=== PATIENT | female | born 1960 | race African-American/Black ===

== ENCOUNTER → 2017-03-02 | Outpatient (CLI) | payer MEDICARE ==
[~2017-03-02] MED LIST: ACETAMINOPHEN PO; ADVAIR; ADVAIR 2501 DISK W/D; ADVAIR 5001 DISK W/D PO; ALBUTEROL17 GM NEB; ASPIRINEC PO; CALCIUM 600 +1 EA10 PO; CERTAGEN PO; CIPRO PO; CLARITIN10 MG; COLACE PO; COMBIVENT INH14.7 GM; COMBIVENT INH14.7 GM INH; CORRECTOL5 MG PO; DULERA 100 MCG/13 GM INH; FLOVENT DISKU100 MCG INH; HARVONI PO; HUMIBID L.1 TAB.SR .; HUMIBID L.1 TAB.SR . PO; LASIX; LEVAQUIN PO; LISINOPRIL; LISINOPRIL20 MG PO; LODINE PO; MEDROL; MEDROL PO; MUCINEX DM1 TAB.SR . PO; MULTIVITAMIN1 UDCAP PO; NEXIUM; NEXIUM PO; PHENERGAN W/CO120 ML PO; PREDNISONE; PREDNISONE PO; PRILOSEC; PRILOSEC2.5 MG; PRILOSEC20 MG PO; PROAIR HFA8.5 GM INH; RANITIDINE HCL150 M1 PO; REQUIP1 MG PO; RHINOCORT AQUA8.6 GM; ROBITUSSIN ALL118 ML; ROBITUSSIN ALL118 ML PO; ROBITUSSIN-DM120 ML PO; SINGULAIR; SINGULAIR PO; SPIRIVA18 MCG; SPIRIVA18 MCG INH; STEROID; SUDAFED PO; VERAMYST10 GM; XOPENEX1.25 MG/0.; ZESTORETIC 20/11 TAB PO; ZITHROMAX; ZITHROMAX PO; ZYRTEC PO; [UNRECOGNIZED DRUG - OTHER]
--- NOTE | ~2017-03-02 | MY11 ---
[facility] A Service of [facility] & [facility] RADIOLOGY TEXT RESULTS PATIENT: MARY JANE PAIRSH LOCATION: [facility] : 64 UNIT #: [id number] AGE: [address]: Desmond Michel MD SEX: F ORDER DR: [id number] [facility] [address] [place], [place] [address] [id number] O MR#: [id number] Acc #: [id number] NAME: MARY JANE PARISH : 1960 SEX: F STUDY DATE/TIME: 03/02/2017 10:13 UNIT: [facility] ROOM: STUDY DESCRIPTION: MY Mammogram Screening Dig Daniel Attending Physician: Desmond Michel M.D. Referring Physician: Desmond Michel M.D. Ordering Physician: Desmond Michel M.D. Primary Care Physician: Desmond Micehl M.D. MEDICAL IMAGING REPORT This report is preliminary unless electronic signature is present EXAM Screening mammogram, 03/02 INDICATION 56-year-old with no personal or family history of breast cancer. No current complaints. FINDINGS Routine digital screening views of both breasts were obtained. Study is reviewed with an FDA-approved CAD device. Comparison is made with 02/25/2016, 02/19/2015, 02/16/2014. Breast parenchyma shows scattered fibroglandular densities. No new masses or suspicious microcalcifications are seen. Partially obscured benign nodules in both breasts are stable. IMPRESSION Benign mammogram. Routine screen in one year is recommended. Patients over the age of 40 are entered into a reminder system with target due date for the next mammogram. A result letter will also be sent to the patient. BIRADS: 2 Benign Finding Dictated by... Clemente Melara Jr., M.D. THIS IS AN ELECTRONICALLY VERIFIED REPORT Clemente Melara Jr., M.D. at 03/02/2017 5:05 PM NARESH/suman TD: 03/02/2017 11:50 [facility] A Service of [facility] & [facility] RADIOLOGY TEXT RESULTS PATIENT: MARY JANE PARISH LOCATION: [facility] #: [id number] : 64 UNIT #: [id number] AGE: [address]: Desmond Michel MD SEX: F ORDER DR: JOB #: [id number] MEDICAL IMAGING REPORT Page 1 of 1 COPY
== END | disposition home or self-care (01) ==
LOC: CWCC 09:52
DX: Z12.31 Encounter for screening mammogram for malignant neoplasm of breast (principal)
CPT/HCPCS: G0202

== ENCOUNTER → 2017-04-15 | Outpatient (CLI) | payer MEDICARE ==
--- NOTE | ~2017-04-15 | BD1 ---
[facility] A Service of [facility] & [facility] RADIOLOGY TEXT RESULTS PATIENT: MARY JANE PARISH LOCATION: [facility] : 64 UNIT #: [id number] AGE: [address]: Desmond Michel MD SEX: F ORDER DR: [id number] [facility] [address] [place], [place] [address] [id number] O MR#: [id number] Acc #: [id number] NAME: MARY JANE PARISH : 1960 SEX: F STUDY DATE/TIME: 04/15/2017 9:36 UNIT: [facility] ROOM: STUDY DESCRIPTION: BD Dexa Bone Dens 1+ Site Attending Physician: Desmond Michel M.D. Ordering Physician: Desmond Michel M.D. Primary Care Physician: Desmond Michel M.D. MEDICAL IMAGING REPORT This report is preliminary unless electronic signature is present EXAM DEXA scan 04/15/2017 HISTORY Status post menopause with no hormone replacement therapy. Osteopenia. Hypertension with blood pressure medication. Smoking history for 25 years. FINDINGS Bone mineral density in the lumbar spine from L1-L4 is 1.062 g/cm2 which is 0.1 standard deviations above the mean when compared to the young adult reference population which is within the range of normal. This is 0.4 standard deviations above the mean when compared to the age-matched population. Bone mineral density in the left femoral neck was 1.096 g/cm2 which is 2.2 standard deviations above the mean when compared to the young adult reference population which is within the range of normal. This is 1.8 standard deviations above the mean when compared to the age-matched population. IMPRESSION Bone mineral density in the lumbar spine and left hip within the range of normal. Dictated by... Feliciano Beltran M.D. THIS IS AN ELECTRONICALLY VERIFIED REPORT Feliciano Beltran M.D. at 04/17/2017 8:27 AM KRT/to TD: 04/15/2017 12:48 JOB #: [id number] MEDICAL IMAGING REPORT [facility] A Service of [facility] & [facility] RADIOLOGY TEXT RESULTS PATIENT: MARY JANE PARISH LOCATION: [facility] #: [id number] : 64 UNIT #: [id number] AGE: [address]: Desmond Michel MD SEX: F ORDER DR: Page 1 of 1 COPY
== END | disposition home or self-care (01) ==
LOC: CWCC 09:13
DX: M81.0 Age-related osteoporosis without current pathological fracture (principal)
CPT/HCPCS: 77080